=== PATIENT | female | born 1990 ===

== ENCOUNTER 2018-08-12 13:38 | Inpatient (IN) | payer OTHER ==
[~2018-08-12] VITALS: Ht 165.1 cm; Wt 2.7 kg
[2018-08-14] MEDS ORDERED: PRENATAL DHA200 MG PO (18:43)
[2018-08-14] MEDS ORDERED: PRENATAL TABLE1 EAC2 PO (18:43)
== END 2018-08-15 14:53 | disposition home or self-care (01) | DRG 785 ==
LOC: SURG-SUITE 13:38 → LDR 13:38 → SURG-SUITE 22:14
PROVIDERS: Obstetrics & Gynecology Obstetrics
PROC: 0UL70ZZ Occlusion of Bilateral Fallopian Tubes, Open Approach (ICD-10-PCS; 2018-08-12)
PROC: 4A1HXCZ Monitoring of Products of Conception, Cardiac Rate, External Approach (ICD-10-PCS; 2018-08-12)
PROC: 10D00Z1 Extraction of Products of Conception, Low, Open Approach (ICD-10-PCS; principal; 2018-08-12 17:00)
DX: O64.1XX0 Obstructed labor due to breech presentation, not applicable or unspecified (principal); Z3A.38 38 weeks gestation of pregnancy; Z37.0 Single live birth; Z30.2 Encounter for sterilization; Z22.330 Carrier of Group B streptococcus